=== PATIENT | male | born 1960 | race Two or more races ===

== ENCOUNTER 2021-05-23 19:11 | Emergency (ER) | payer MEDICAID ==
[~2021-05-23] VITALS: Ht 172.7 cm; Wt 84.1 kg
--- NOTE | 2021-05-23 19:35 | NUR ---
Patient arrived at the ER with c/o of chest pain x3 days and feeling numbnes on left arm. Patient AAOX4. No /GI concern.
--- NOTE | 2021-05-23 19:40 | NUR ---
Dr. Alaniz on bedside for MSE.
[2021-05-23] MEDS ORDERED: ASPI81TA31 PO (19:41)
[2021-05-23] MEDS ORDERED: HYDROCODONE/APAP 5-325MG TABLET PO ONE (19:45)
[2021-05-23] MEDS ORDERED: NITROGLYCERIN OINT 1 GM PACKET TP ONE ×2 (19:45→20:01)
[2021-05-23] MEDS ORDERED: ASPIRIN 81 MG TAB.CHEW PO ONE (19:45)
[2021-05-23 19:53] LABS: HEMATOCRIT 42.2 % (36.7-47.1); MEAN CORPUSCULAR HEMOGLOBIN 30.1 uug (23.8-33.4); PLATELET COUNT (AUTO) 269 K/uL (152-348)
[2021-05-23] MEDS ORDERED: ASPIRIN 81 MG TAB.CHEW ONE (20:00)
[2021-05-23 20:01] LABS: CREATININE 1.1 mg/dL (0.6-1.3); POTASSIUM 3.7 mmol/L (3.5-5.1)
[2021-05-23] MEDS ORDERED: HYDROCODONE/APAP 5-325MG TABLET ONE (20:01)
[2021-05-23 20:15] LABS: BILIRUBIN,DIRECT 0.1 mg/dL (0.0-0.2); BILIRUBIN,TOTAL 0.3 mg/dL (0.2-1.0); TOTAL PROTEIN, SERUM 7.1 g/dL (6.4-8.2)
[2021-05-23 23:29] VITALS: BP 108/68
--- NOTE | 2021-05-23 23:29 | NUR ---
Patient discharged to home in stable condition. Written and verbal after care instructions given. Patient verbalizes understanding of instructions. Stressed follow up or return to ER for worsening s/s. Patient ambulated fr the ER with steady gait. All belongings with patient.
== END 2021-05-23 23:30 | disposition home or self-care (01) ==
LOC: ER 19:15
DX: R07.9 Chest pain, unspecified (principal); R20.2 Paresthesia of skin; R00.1 Bradycardia, unspecified; Z87.891 Personal history of nicotine dependence
CPT/HCPCS: 36415; 70030-TC; 71045; 85025; 93005; A4663